=== PATIENT | female | born 1980 | race Hispanic/Latino ===

== ENCOUNTER 2019-09-03 00:34 | Emergency (ER) | payer BC ==
[2019-09-03] MEDS ORDERED: oxyCODONE /ACETAMINOPHEN 5-325MG TAB PO ONE (02:11)
[2019-09-03 02:43] VITALS: BP 150/98
--- NOTE | 2019-09-03 02:43 | Emergency Department Report ---
ED ENT HPI - General Chief complaint: Dental/Oral Stated complaint: TOOTHACHE Time Seen by Provider: 09/03/19 01:46 Source: patient Mode of arrival: Ambulatory Limitations: No Limitations - History of Present Illness MD complaint: tooth pain -: Gradual, Sudden Location: throat Severity: moderate Quality: dull (throbbing pain) Consistency: constant - Related Data Previous Rx's Medication Instructions Recorded Last Taken Type Clindamycin [Clindamycin CAP] 150 mg PO Q8HR #21 capsule 09/03/19 Unknown Rx Ketorolac [Toradol] 10 mg PO Q6H PRN #15 tablet 09/03/19 Unknown Rx Lidocaine Viscous 2% 5 ml MM Q3H PRN #120 udc 09/03/19 Unknown Rx Allergies Allergy/AdvReac Type Severity Reaction Status Date / Time Penicillins Allergy Unknown Verified 09/03/19 00:40 codine Allergy Hives Uncoded 09/03/19 00:40 ED Dental HPI - General Chief complaint: Dental/Oral Stated complaint: TOOTHACHE Time Seen by Provider: 09/03/19 01:46 Source: patient Mode of arrival: Ambulatory Limitations: No Limitations - Related Data Previous Rx's Medication Instructions Recorded Last Taken Type Clindamycin [Clindamycin CAP] 150 mg PO Q8HR #21 capsule 09/03/19 Unknown Rx Ketorolac [Toradol] 10 mg PO Q6H PRN #15 tablet 09/03/19 Unknown Rx Lidocaine Viscous 2% 5 ml MM Q3H PRN #120 udc 09/03/19 Unknown Rx Allergies Allergy/AdvReac Type Severity Reaction Status Date / Time Penicillins Allergy Unknown Verified 09/03/19 00:40 codine Allergy Hives Uncoded 09/03/19 00:40 ED Review of Systems ROS: Stated complaint: TOOTHACHE Other details as noted in HPI Comment: All other systems reviewed and negative ED Past Medical Hx - Past Medical History Previous Medical History?: No - Surgical History Past Surgical History?: No - Social History Smoking Status: Current Every Day Smoker Substance Use Type: None - Medications Home Medications: Home Medications Medication Instructions Recorded Confirmed Last Taken Type Clindamycin [Clindamycin CAP] 150 mg PO Q8HR #21 capsule 09/03/19 Unknown Rx Ketorolac [Toradol] 10 mg PO Q6H PRN #15 tablet 09/03/19 Unknown Rx Lidocaine Viscous 2% 5 ml MM Q3H PRN #120 udc 09/03/19 Unknown Rx ED Physical Exam - General Limitations: No Limitations General appearance: alert, in no apparent distress - Head Head exam: Present: atraumatic, normocephalic - Eye Eye exam: Present: normal appearance - ENT ENT exam: Present: mucous membranes moist, other (severe dental erosion to the right lower molar with adjacent gingival erythema no abscess noted. There is some swelling present tenderness with palpation.) - Neck Neck exam: Present: normal inspection, full ROM. Absent: meningismus, lymphadenopathy - Respiratory Respiratory exam: Present: normal lung sounds bilaterally. Absent: respiratory distress - Cardiovascular Cardiovascular Exam: Present: regular rate, normal rhythm. Absent: systolic murmur, diastolic murmur, rubs, gallop - GI/Abdominal GI/Abdominal exam: Present: soft, normal bowel sounds - Extremities Exam Extremities exam: Present: normal inspection - Back Exam Back exam: Present: normal inspection - Neurological Exam Neurological exam: Present: alert, oriented X3 - Psychiatric Psychiatric exam: Present: normal affect, normal mood - Skin Skin exam: Present: warm, dry, intact, normal color. Absent: rash ED Course Vital Signs 09/03/19 09/03/19 00:40 02:18 Temperature 97.7 F Pulse Rate 82 Respiratory 18 18 Rate Blood Pressure 164/87 O2 Sat by Pulse 97 Oximetry ED Medical Decision Making - Medical Decision Making 39-year-old female with history of dental erosion presents with a few day history of dental pain evolution Critical care attestation.: If time is entered above; I have spent that time in minutes in the direct care of this critically ill patient, excluding procedure time. ED Disposition Clinical Impression: Dentalgia Disposition: DC- TO HOME OR SELFCARE Is pt being admited?: No Does the pt Need Aspirin: No Condition: Stable Prescriptions: Clindamycin [Clindamycin CAP] 150 mg PO Q8HR #21 capsule Lidocaine Viscous 2% 5 ml MM Q3H PRN #120 udc PRN Reason: Pain, Moderate (4-6) Ketorolac [Toradol] 10 mg PO Q6H PRN #15 tablet PRN Reason: Pain Referrals: PRIMARY CARE,MD [Primary Care Provider] - 3-5 Days [facility] [Outside] - 3-5 Days
== END 2019-09-03 03:00 | disposition home or self-care (01) ==
LOC: ED 00:34
DX: K08.89 Other specified disorders of teeth and supporting structures (principal)
CPT/HCPCS: 99282